=== PATIENT | male | born 1975 | race Caucasian/White ===

== ENCOUNTER 2018-04-10 00:35 | Emergency (ER) | payer SELFPAY ==
[2018-04-10 03:53] VITALS: BP 168/110
== END 2018-04-10 03:55 | disposition left against medical advice (07) ==
LOC: ED 00:35
DX: S61.217A Laceration without foreign body of left little finger without damage to nail, initial encounter (principal); S61.212A Laceration without foreign body of right middle finger without damage to nail, initial encounter; I10 Essential (primary) hypertension; W25.XXXA Contact with sharp glass, initial encounter; Y93.89 Activity, other specified; Y92.89 Other specified places as the place of occurrence of the external cause; Y99.8 Other external cause status
CPT/HCPCS: 90715; J2001; J3490